=== PATIENT | male | born 1960 | race Caucasian/White ===

== ENCOUNTER 2023-03-06 10:59 | Emergency (ER) | payer SELFPAY ==
[~2023-03-06] VITALS: Ht 172.7 cm; Wt 77.4 kg
[~2023-03-06 10:59] MED LIST: ASPI-1265 PO; ATEN25TA PO; ATOR-2 PO; CHOL100046 PO; HYDR-4353 PO; LOSA100T58 PO; OMEG1CAP61 PO; TERA2CAP4 PO
[2023-03-06 11:03] VITALS: BP 155/80; PULSE 67; RESP 18; TEMP 97.9; O2SAT 97
== END 2023-03-06 23:26 | disposition left against medical advice (07) ==
LOC: ER 10:59
DX: S61.210A Laceration without foreign body of right index finger without damage to nail, initial encounter (principal); Z53.21 Procedure and treatment not carried out due to patient leaving prior to being seen by health care provider; X58.XXXA Exposure to other specified factors, initial encounter; Y93.89 Activity, other specified; Y92.89 Other specified places as the place of occurrence of the external cause; Y99.8 Other external cause status
CPT/HCPCS: 99281

== ENCOUNTER 2025-01-08 00:33 | Emergency (ER) | payer SELFPAY ==
[~2025-01-08] VITALS: Ht 172.7 cm; Wt 75.0 kg
[2025-01-08 00:35] VITALS: BP 134/82; PULSE 65; RESP 16; TEMP 97.8; O2SAT 100
== END 2025-01-08 03:27 | disposition left against medical advice (07) ==
LOC: ER 00:34
DX: R53.1 Weakness (principal); R63.0 Anorexia; Z53.21 Procedure and treatment not carried out due to patient leaving prior to being seen by health care provider
CPT/HCPCS: 99281